=== PATIENT | female | born 2000 | race Caucasian/White ===

== ENCOUNTER 2022-01-27 07:38 | Inpatient (IN) ==
[2022-01-27] MEDS ORDERED: OXYTOCIN 30 UNITS/500 ML BAG IV PRN ×2 (08:27→08:29)
[2022-01-27] MEDS ORDERED: LIDOCAINE 1% LOCAL 20 ML VIAL INFIL PRN (08:27)
--- NOTE | 2022-01-27 08:56 | History & Physical Report ---
Date of Service January 27, 2022 Assessment & Plan (1) Encounter for induction of labor: (2) Late care complicating : (3) Current every day nicotine vaping: Plan -IUP at 37 weeks for IUGR -Late care- OB care sought out at 34 weeks. -Vaping throughout -GBS(-), RI, Rh + -Pitocin augmentation the AROM when possible -anticipate vaginal . Admission and Anticipated Discharge Date Admission Date: January 27, 2022 History of Present Illness Chief Complaint: Induction of labor Primary Care Provider: TORRI Flowers at 37 weeks confirmed via LMP. Here for induction d/t IUGR with AC <2%ile, efw 10%. Complications with this include IUGR and currently vaping. She says she was trying to cut down on her vaping and is only vaping 1-2 puffs every hour. No previous OB care until 34 weeks. Currently taking no medications. Contractions: none Fluid or Blood loss: none Movement: active Labs - Blood type: O+ - Antibody screen: negative - Hgb: 12.5 - Hct: 36.3 - Wbc: 8.28 - Plt: 229 - Rubella: immune - VDRL/RPR: negative - Gonorrhea: negative - Chlamydia: negative - HIV: negative - HbSAg: negative - GBS: negative - Glucose tolerance x 1 Allergies Allergy/AdvReac Type Severity Reaction Status Date / Time No Known Allergies Allergy Verified 01/27/22 07:46 Home Medications Medication Instructions Recorded Confirmed Type prenat.vits,claudia,rwl-vvxa-ajdub 1 tab PO DAILY 01/07/22 01/27/22 History Patient History Medical History No known health problems Varicella vaccination Surgical History No significant past surgical history Family History (Updated 01/07/22 @ 15:37 by Merlyn Meza RN) Mother Asthma Other Family history non-contributory Denies family history of Ovarian cancer Prostate cancer Breast cancer Cancer Social History (Updated 01/07/22 @ 15:40 by Merlyn Meza RN) Smoking Status: Current every day smoker Tobacco Type: E-cigarettes / Vaping Second Hand Exposure: No; Hx Alcohol Use: No Hx Substance Use: Yes (four years ago took adderall not prescribe to patient) Preferred Language: [place] Communication Ability: Effective Visual Impairment: No Limitations Hearing Ability: Normal Respiratory Tech Required: No Beliefs That Will Affect Care: None marital status: Single marital status details: FOB: Kenny Sapp (20) [phone] Current Living Situation: Family Current Living Situation Comment: Lives with parents. 1 small dog current occupational status: employed current occupation: [employer] Feels Safe at Home: Yes Assistive Devices: None Review of Systems Denies fever, chills, sweats Denies shortness of breath, difficulty breathing, chest pain, palpitations, chest pressure. Denies breast pain. Denies dysuria. Denies headache or changes in vision. Physical Exam Physical Exam: General: Alert, oriented. No acute distress. Cardiac: Regular rate and rhythm, no murmurs/rubs/gallops. Respiratory: Clear to auscultation bilaterally a/p, no wheezes/rales/rhonchi. No increased work of breathing. Symmetrical chest rise. No respiratory distress. Abdomen: Gravid; normal FHTs; cephalic presentation Pelvic: Dilation 3cm; Effacement 70%; Station -[address] Carrillo Lower Extremities: No lower extremity edema or swelling. No deep calf pain. Blayne's negative bilaterally Results & Data ([facility]) Vital Signs (Past 12 Hours) Vital Signs Temp Pulse Resp BP 01/27/22 08:01 85 120/80 01/27/22 08:00 36.9 C 18 Code Status & VTE Plan VTE Prophylaxis Plan VTE Prophylaxis will be ordered: No Supervising Physician Co-Signing Physician Notes Resident Physician Supervision Note: I interviewed and examined the patient. Discussed with Dr. Zuniga and agree with findings and plan as documented in the note. Any exceptions or clarifications are listed here: [None] Documented By: Sarah Carrillo MD, FACOG Resident Activity Tracking Resident Involvement: Resident Care Provided Care Provided: OB Delivery
[2022-01-27] MEDS: LACTATED RINGER'S 1,000 ML IV PRN ×2 (09:12→20:04)
[2022-01-27 09:15] LABS: Hemoglobin 11.9 g/dl (12.0-16.0); Mean Corpuscular Hemoglobin 31.1 pg (25.0-34.0); Mean Corpuscular Volume 91.4 fL (80.0-100.0); Mean Platelet Volume 11.4 fL (9.4-12.3); Platelet Count 214 K/uL (130-400); RDW Coefficient of Variation 12.9 % (11.5-14.5); RDW Standard Deviation 41.8 fL (36.4-46.3); Red Blood Count 3.83 M/uL (3.93-5.22); White Blood Count 9.56 K/ul (4.8-10.8)
--- NOTE | 2022-01-27 19:27 | Labor Progress Brief Note ---
Date of Service January 27, 2022 Subjective Feeling ctx, but not painful. FHT Cat 1 [place] Q 2 SVE 6/80/0, bulging membranes. She'd like to get epidural prior to AROM - she is considering getting it soon. Assessment & Plan Admission and Anticipated Discharge Date Admission Date: January 27, 2022 Results & Data ([facility]) Vital Signs (Past 12 Hours) Vital Signs Temp Pulse Resp BP 01/27/22 19:00 37.2 C 18 01/27/22 18:58 70 125/86 01/27/22 17:57 78 129/92 01/27/22 16:57 68 124/88 01/27/22 15:57 62 116/69 01/27/22 15:14 36.8 C 01/27/22 15:21 71 111/68 01/27/22 14:57 61 103/64 01/27/22 13:57 81 97/61 L 01/27/22 12:57 60 104/65 01/27/22 11:51 68 128/91 01/27/22 11:36 81 124/88 01/27/22 11:21 64 115/84 01/27/22 11:06 67 127/88 01/27/22 07:55 18 01/27/22 07:55 18 01/27/22 10:53 77 136/91 01/27/22 10:40 18 01/27/22 10:40 18 01/27/22 10:37 78 127/94 01/27/22 10:21 97 H 130/90 01/27/22 10:04 83 135/96 01/27/22 10:05 88 135/96 01/27/22 08:01 85 120/80 01/27/22 08:00 36.9 C 18 Coding Level of Care Code None
[2022-01-27] MEDS ORDERED: ePHEDrine sulfate 50 MG/ML AMP ONE (19:37)
[2022-01-27] MEDS ORDERED: fentaNYL 2MCG/ML ROPIVACAINE 1.25MG/ML 100 ML BAG EPI ONE (19:38)
[2022-01-27] MEDS ORDERED: fentaNYL citrate 100 MCG/2 ML VIAL ONE (19:38)
[2022-01-27] MEDS ORDERED: SODIUM CHLORIDE 0.9% INJ 10 ML VIAL ONE (19:38)
[2022-01-27] MEDS ORDERED: LIDOCAINE 2%/EPINEPHRINE 1:200,000 20 ML SDV ONE (19:38)
[2022-01-27] MEDS ORDERED: BUPIVACAINE 0.25% 30 ML VIAL ONE (19:38)
[2022-01-27] MEDS ORDERED: NALOXONE HCL 1 MG in SODIUM CHLORIDE 0.9% 1000ML 1,000 ML IV PRN (19:50)
[2022-01-27] MEDS ORDERED: ONDANSETRON INJ 2 MG/ML 2 ML VIAL IV PRN (19:50)
[2022-01-27] MEDS ORDERED: NALOXONE HCL 0.4 MG/1 ML VIAL/CARP IV PRN (19:50)
[2022-01-27] MEDS ORDERED: ePHEDrine sulfate 50 MG/ML AMP IV PRN (19:50)
[2022-01-27] MEDS ORDERED: diphenhydrAMINE 50 MG/ML VIAL IV PRN (19:50)
[2022-01-27] MEDS ORDERED: NALBUPHINE HCL INJ 10 MG/ML AMP IV PRN (19:50)
--- NOTE | 2022-01-27 19:52 | Anesthesiology Consultation ---
Date of Service January 27, 2022 Assessment & Plan Chart Review Chart Review: Patient NOT seen in Pre Admission Testing and Acceptable Risk for Labor Epidural Consults Requested none ASA ASA2 Proposed Anesthesia Anesthesia Type: Labor Epidural and CSE Risk / Benefits Reviewed With: PT / POA / Parent / Guardian, Accepts Plan and Informed Consent Obtained History Height/Weight Height: 5 ft 4 in Weight: 84.085 kg Allergies Allergy/AdvReac Type Severity Reaction Status Date / Time No Known Allergies Allergy Verified 01/27/22 07:46 Medications Home Medications Medication Instructions Recorded Confirmed Last Taken prenat.vits,claudia,ouv-lcol-ryutv 1 tab PO DAILY 01/07/22 01/27/22 01/27/22 00:01 Active Medications Generic Name Dose Route Start Last Admin Trade Name Freq PRN Reason Stop Dose Admin Lactated Ringer's 1,000 mls @ 125 mls/hr 01/27/22 08:27 01/27/22 15:25 Lr IV 01/29/22 08:26 125 mls/hr .Q8H PRN Infusion L&D Protocol Protocol Oxytocin 30 units in 500 mls @ 19 mls/hr 01/27/22 08:29 01/27/22 19:00 Pitocin IV 01/29/22 08:28 1.14 units/hr .Q24H PRN 19 mls/hr Labor Induction/Augmentation Titration Protocol 1.14 UNITS/HR NPO Date Last Intake of Fluids: 01/27/22 Time Last Intake of Fluids: 19:00 Date Last Intake of Solids: 01/27/22 Time Last Intake of Solids: 08:00 Past Medical History Medical History Vapes nicotine containing substance Varicella vaccination Exercise / Class Metabolic Activity II 4-5 Yardwork/Stairs/Walk up hill Past Family History Family History Mother Asthma Other Family history non-contributory Denies family history of Ovarian cancer Prostate cancer Breast cancer Cancer Past Surgical History Surgical History No significant past surgical history Past Anesthesia History No Hx of Anesthesia Complications and No Family Hx of Anesthesia Complications History of PONV No Hx of PONV and No Hx of Motion Sickness Social History Smoking Status: Current every day smoker tobacco type: e-cigarettes Hx Alcohol Use: No Hx Substance Use: Yes (four years ago took adderall not prescribe to patient) substance use type: other Review of Systems no chest pain or sob Physical Exam Vital Signs Last Vital Signs Temp 37.2 C 01/27/22 19:00 Pulse 73 01/27/22 19:46 Resp 18 01/27/22 19:00 BP 125/86 01/27/22 18:58 Pulse Ox 99 01/27/22 19:46 ENMT Mouth: no TMJ abnormality Thyromental Distance: > or= 3.5 Finger Breadths Mallampati Class: II Neck normal visual inspection Respiratory normal respiratory effort Auscultation: lungs clear to auscultation bilaterally Cardiovascular Rate/Rhythm: regular rate and regular rhythm Musculoskeletal Spine: normal cervical ROM Neurologic moves all extremities Psychiatric Orientation: alert and oriented x 3 Testing Laboratory Results 01/27/22 08:48
[2022-01-27] MEDS: fentaNYL 2MCG/ML ROPIVACAINE 1.25MG/ML 100 ML BAG EPI PRN (20:07)
--- NOTE | 2022-01-27 20:56 | Labor Progress Brief Note ---
Date of Service January 27, 2022 Subjective Comfortable now with epidural. FHT Cat 1 Crum Q 2 SVE 6/80/0 AROM clear fluid Assessment & Plan Admission and Anticipated Discharge Date Admission Date: January 27, 2022 Results & Data ([facility]) Vital Signs (Past 12 Hours) Vital Signs Temp Pulse Resp BP Pulse Ox 01/27/22 19:00 37.2 C 18 01/27/22 20:51 82 100 01/27/22 20:46 79 99 01/27/22 20:41 74 99 01/27/22 20:36 81 99 01/27/22 19:30 16 01/27/22 19:30 16 01/27/22 20:31 89 100 01/27/22 20:15 16 01/27/22 20:15 16 01/27/22 20:05 18 01/27/22 20:05 18 01/27/22 20:26 87 100 01/27/22 20:25 83 107/64 01/27/22 20:21 84 99 01/27/22 20:16 99 01/27/22 20:16 74 01/27/22 20:16 77 109/73 01/27/22 20:14 64 108/72 01/27/22 20:11 77 99 01/27/22 20:12 70 114/75 01/27/22 20:10 72 18 116/76 01/27/22 20:08 92 H 114/78 01/27/22 20:06 99 01/27/22 20:06 79 01/27/22 20:06 81 119/81 01/27/22 20:04 85 120/87 01/27/22 20:01 110 H 100 01/27/22 19:56 100 01/27/22 19:56 100 H 01/27/22 19:56 106 H 91 01/27/22 19:51 112 H 100 01/27/22 19:46 73 99 01/27/22 19:41 81 99 01/27/22 19:36 80 99 01/27/22 19:31 83 99 01/27/22 19:26 84 99 01/27/22 18:58 70 125/86 01/27/22 17:57 78 129/92 01/27/22 16:57 68 124/88 01/27/22 15:57 62 116/69 01/27/22 15:14 36.8 C 01/27/22 15:21 71 111/68 01/27/22 14:57 61 103/64 01/27/22 13:57 81 97/61 L 01/27/22 12:57 60 104/65 01/27/22 11:51 68 128/91 01/27/22 11:36 81 124/88 01/27/22 11:21 64 115/84 01/27/22 11:06 67 127/88 01/27/22 10:53 77 136/91 01/27/22 10:40 18 01/27/22 10:40 18 01/27/22 10:37 78 127/94 01/27/22 10:21 97 H 130/90 01/27/22 10:04 83 135/96 01/27/22 10:05 88 135/96 Coding Level of Care Code None
[2022-01-28] MEDS: LACTATED RINGER'S 1,000 ML IV PRN (00:20)
[2022-01-28] MEDS: fentaNYL 2MCG/ML ROPIVACAINE 1.25MG/ML 100 ML BAG EPI PRN (02:45)
[2022-01-28 02:59] LABS: Cord Venous Blood HCO3 22 mmol/L (18.4-26.8); Cord Venous Blood PCO2 36 mmHg (30.4-57.2); Cord Venous Blood PO2 34 mmHg (14.1-43.3); O2 Saturation Cord Venous Bld 76.4 % (<68)
--- NOTE | 2022-01-28 03:00 | Delivery Summary ---
Vaginal Delivery Summary Date of Service January 28, 2022 Vaginal Delivery Summary Vaginal Delivery Summary: Pre-delivery diagnoses: 21yo @ 37 /, IUGR, late presentation to care, e-cigarette use Post-delivery diagnoses: same Procedure: spontaneous vaginal delivery Surgeon: Jessica Tristan DO Complications: none Findings: Viable female . Apgars: . Weight pending, please see nursery records Estimated blood loss: 300ml Description of delivery: The patient progressed to complete with epidural anesthesia. She then began to push. She spontaneously vaginally delivered a viable from the cephalic presentation. The head delivered in PATRICIO position. The anterior shoulder delivered, followed by the posterior shoulder, followed by the body. No nuchal cord. The baby was placed on mother's abdomen and a spontaneous cry was heard. Delayed cord clamping was employed, and the cord was doubly clamped and cut. A segment was retained for cord gases. Cord blood was obtained. Attempt at placental delivery, and umbilical cord avulsion occurred. Therefore, placenta was manually removed. The placenta appeared intact after manual extraction, however difficult to determine - sweep of uterine cavity revealed no large placental fragments, however anterior uterine wall had rough texture. Therefore Banjo curette was used for 2 gentle passes along this area. Scant tissue return and good uterine cry. IV pitocin was given. The uterus became firm and excellent hemostasis. The cervix, vagina, and perineum were inspected and no lacerations were noted. Excellent hemostasis was observed. The mother and baby are recovering in stable and good condition in the room. Sponge and instrument counts were correct x 2. Jessica Tristan [place] [facility] [place]
[2022-01-28] MEDS ORDERED: oxyCODONE/ACETAMINOPHEN 5mg/325mg TAB PO PRN (03:04)
[2022-01-28] MEDS ORDERED: DIPHTHERIA/TETANUS/PERTUSSIS 0.5 ML SYR/VIAL IM ONE (03:04)
[2022-01-28] MEDS ORDERED: BENZOCAINE 20% AER SPR 82.5 GM CAN EXT PRN (03:04)
[2022-01-28] MEDS ORDERED: ACETAMINOPHEN 325 MG TAB PO PRN (03:04)
[2022-01-28] MEDS ORDERED: OXYTOCIN 30 UNITS/500 ML BAG IV PRN (03:04)
[2022-01-28] MEDS ORDERED: HYDROCORTISONE ACETATE 25 MG SUPP PR PRN (03:04)
[2022-01-28] MEDS: ceFAZolin 1000MG 1,000 MG/7.5 ML SYR IV SCH ×3 (03:25→19:55)
[2022-01-28] MEDS: IBUPROFEN 600 MG TAB PO PRN ×4 (05:37→20:58)
[2022-01-28] MEDS: PRENATAL VITAMIN 1 TAB PO SCH (08:20)
[2022-01-28] MEDS: DOCUSATE SODIUM 100 MG CAP PO SCH ×2 (08:20→19:55)
--- NOTE | 2022-01-28 09:07 | Anesthesia Procedure Note ---
Date of Service January 28, 2022 Anesthesia Post Epidural Note Vital Signs Vital Signs: Temp Pulse Resp BP Pulse Ox O2 Del Method 36.7 C 62 16 109/72 98 01/28/22 07:20 01/28/22 07:20 01/28/22 07:20 01/28/22 07:20 01/28/22 07:01/28/22 07:20 Notes Mental Status: alert / awake / arousable and participated in evaluation Nausea / Vomiting: adequately controlled Pain: adequately controlled Airway Patency, RR, SpO2: stable & adequate BP & HR: stable & adequate Hydration State: stable & adequate Anesthetic Complications: no major complications apparent and Pt Satisfied with anesthetic care Epidural: Removed without complications and With tip intact
[2022-01-29] MEDS: IBUPROFEN 600 MG TAB PO PRN ×3 (03:27→16:10)
[2022-01-29] MEDS: PRENATAL VITAMIN 1 TAB PO SCH (07:33)
[2022-01-29] MEDS: DOCUSATE SODIUM 100 MG CAP PO SCH ×2 (07:33→19:56)
[2022-01-29 08:14] LABS: Hematocrit (blood only) 31.8 % (34.1-44.9); Hemoglobin 10.5 g/dl (12.0-16.0)
--- NOTE | 2022-01-29 08:20 | Obstetrical Progress Note ---
Date of Service January 29, 2022 Assessment & Plan (1) Encounter for care and examination after delivery: Day 1 S/p . Doing well. Routine care Subjective Ambulation: ambulating normally Voiding: no voiding problems Passing Gas:: Yes Diet Tolerance:: regular diet Lochia:: Moderate Feeding Type:: breast feeding Physical Exam Constitutional WD/WN, vitals as above Respiratory normal respiratory effort; no respiratory distress and no labored breathing Gastrointestinal (Abdomen) Inspection/Auscultation: abdomen normal to inspection; abdomen not distended Percussion/Palpation: abdomen soft; abdomen nontender, no guarding and abdomen not rigid Genitourinary OB Exam Abdomen: + fundal height Fundus: + firm and + relation to umbilicus (Below); not tender or not boggy Results & Data ([facility]) Vital Signs (Past 12 Hours) Vital Signs Temp Pulse Resp BP Pulse Ox O2 Del Method 01/29/22 03:30 36.4 C L 83 20 120/79 98 Room Air 01/28/22 23:15 36.7 C 75 18 119/81 97 Room Air 01/28/22 21:30 36.9 C 76 20 119/79 100 Room Air
[2022-01-29] MEDS ORDERED: bisacodyL 5 MG TABEC PO SCH (20:00)
[2022-01-30] MEDS: IBUPROFEN 600 MG TAB PO PRN ×2 (01:01→07:41)
[2022-01-30] MEDS ORDERED: bisacodyL 10 MG SUPP PR PRN (06:00)
--- NOTE | 2022-01-30 07:09 | Obstetrical Progress Note ---
Date of Service <Jalen Zuniga DO - Last Filed: 01/30/22 07:46> January 30, 2022 Assessment & Plan <Jalen Zuniga DO - Last Filed: 01/30/22 07:46> (1) Encounter for care and examination after delivery: Plan - Feels well today. Eating well, voiding well, ambulating well. - Pain well controlled with ibuprofen 600mg Q4H PRN - Routine care -- OOB, ambulation, diet progression as tolerated - After discharge will have 6 week follow-up with Dr. Tristan - D/C today <Sarah Carrillo MD, FACOG - Last Filed: 01/30/22 08:13> (1) Encounter for care and examination after delivery: Subjective <Jalen Zuniga DO - Last Filed: 01/30/22 07:46> Ambulation: ambulating normally Voiding: no voiding problems Passing Gas:: Yes Diet Tolerance:: regular diet Lochia:: Small Feeding Type:: bottle feeding Current Pain Level(1-10): 1 Review of Systems Denies fever, chills, sweats Denies shortness of breath, difficulty breathing, chest pain, palpitations, chest pressure. Denies breast pain. Denies dysuria. Denies headache or changes in vision. Physical Exam <Jalen Zuniga DO - Last Filed: 01/30/22 07:46> General: Alert, oriented. No acute distress. Cardiac: Regular rate and rhythm, no murmurs/rubs/gallops. Respiratory: Clear to auscultation bilaterally a/p, no wheezes/rales/rhonchi. No increased work of breathing. Symmetrical chest rise. No respiratory distress. Abdomen: Soft, nontender, nondistended. Bowel sounds present. Uterus: Uterine fundus firm, palpable below umbilicus. Lower Extremities: No lower extremity edema or swelling. No deep calf pain. Blayne's negative bilaterally. Results & Data ([facility]) <Jalen Zuniga DO - Last Filed: 01/30/22 07:46> Vital Signs (Past 12 Hours) Vital Signs Temp Pulse Resp BP Pulse Ox O2 Del Method 01/30/22 00:55 36.8 C 85 16 121/81 96 Room Air 01/29/22 19:50 36.8 C 88 16 133/89 98 Room Air <Sarah Carrillo MD, FACOG - Last Filed: 01/30/22 08:13> Co-Signing Physician Notes Resident Physician Supervision Note: I interviewed and examined the patient. Discussed with Dr. Zuniga and agree with findings and plan as documented in the note. Any exceptions or clarifications are listed here: [None] Documented By: Sarah Carrillo MD, FACOG Resident Activity Tracking <Jalen Zuniga DO - Last Filed: 01/30/22 07:46> Resident Involvement: Resident Care Provided Care Provided: OB Delivery
[2022-01-30] MEDS: PRENATAL VITAMIN 1 TAB PO SCH (07:41)
[2022-01-30] MEDS: DOCUSATE SODIUM 100 MG CAP PO SCH (07:41)
== END 2022-01-30 15:00 | disposition home or self-care (01) | DRG 807 ==
LOC: 4S1 07:38 → 4E2 01-28 05:36